=== PATIENT | female | born 2000 | race Caucasian/White ===

== ENCOUNTER 2024-03-31 12:42 | Emergency (ER) | payer MEDICAID, SELFPAY ==
[2024-03-31 13:08] VITALS: BP 145/89; PULSE 92; RESP 18; TEMP 36.9; O2SAT 99; BMI 47.2
--- NOTE | 2024-03-31 13:22 | XR_ITS ---
Examination: Pelvic ultrasound, transabdominal, complete Technique: Transabdominal ultrasound of the pelvis performed using grayscale imaging Date and time of exam: March 31, 2024 1425 hours INDICATIONS: Right-sided pelvic pain with vaginal bleeding beginning 2 weeks ago. FINDINGS: Uterus 5.5 x 2.9 x 4.2 cm Posterior uterine mass 2.6 x 0.7 x 2.2 cm No intrauterine gestation Endometrial stripe 0.6 cm Right ovary 2.5 x 1.1 x 2.0 cm arterial flow Left ovary 2.9 x 1.6 x 2.3 cm arterial flow No fluid in the cul-de-sac IMPRESSION: Recommend transvaginal pelvic sonography follow-up to further assess posterior uterine body mass 2.6 x 1.7 x 2.2 cm
--- NOTE | 2024-03-31 13:26 | PD.EDRME ---
Rapid Medical Screening Exam RME Arrival date/time: 03/31/24 12:42 24-year-old female evaluated emergency department for complaints of pelvic pain menorrhagia 2 weeks I have greeted and performed a focused initial assessment of this patient. Initial appropriate labs ordered at this time. A comprehensive ED assessment and evaluation of the patient and analysis of all test and completion of medical decision making process will be conducted by additional ED provider. Chief Complaint: Vaginal Bleeding Time Seen by Provider: 03/31/24 12:52 Vital signs: Vital Signs Temperature 98.5 F 03/31/24 13:08 Pulse Rate 92 03/31/24 13:08 Respiratory Rate 18 03/31/24 13:08 Blood Pressure 145/89 H 03/31/24 13:08 Pulse Oximetry (%) 99 03/31/24 13:08 Oxygen Delivery Method Room Air 03/31/24 13:08
[2024-03-31 14:00] LABS: Collection Type, Urine Clean Catch
[2024-03-31 14:03] LABS: Basophils # (Auto) 0.1 Thou/mm3 (0.0-0.2); Basophils % (Auto) 1 % (0-2.5); Eosinophils # (Auto) 0.4 Thou/mm3 (0.0-0.5); Eosinophils % (Auto) 4 % (0-10); Hematocrit 42.3 % (36.0-46.0); Hemoglobin 14.2 g/dL (12.0-16.0); Immature Granulocytes % (Auto) 0 % (0-0); Immature Granulocytes Auto 0.02 Thou/mm3 (0.00-0.00); Lymphocytes # (Auto) 2.9 Thou/mm3 (1.0-4.8); Lymphocytes % (Auto) 33 % (10-50); Mean Corpuscular HGB Conc 33.6 g/dl (31.0-37.0); Mean Corpuscular Hemoglobin 29.8 pg (25.0-35.0); Mean Corpuscular Volume 89 fL (80-100); Monocytes # (Auto) 0.7 Thou/mm3 (0.0-0.8); Monocytes % (Auto) 8 % (0-12); Neutrophils # (Auto) 4.8 Thou/mm3 (1.8-7.7); Neutrophils % (Auto) 54 % (37-80); Nucleated Red Blood Cell % 0 /100 WBC (0); Platelet Count 328 Thou/mm3 (140-440); RDW Standard Deviation 43.6 fL (36.4-46.3); Red Blood Count 4.76 Miln/mm3 (4.00-5.20); White Blood Count 8.9 Thou/mm3 (3.6-11.0)
[2024-03-31 14:10] LABS: Bilirubin,Urine Negative (Negative); Blood,Urine 3+ (Negative); Clarity,Urine Clear (Clear/Hazy); Color,Urine Colorless (Lt Yel-Yel); Glucose, Urine Negative (Negative); Ketones,Urine Negative (Negative); Leukocyte Esterase,Urine Positive (Negative); Nitrite,Urine Negative (Negative); Protein,Urine Trace (Neg - Trace); RBC,Urine 7 /hpf (0-3); Specific Gravity,Urine 1.022 (1.001-1.035); Squamous Epithelial Cell,Urine 2 /hpf (0-5); Urobilinogen,Urine Negative mg/dL (0.0-1.0); WBC,Urine 9 /hpf (0-5)
[2024-03-31 14:15] LABS: HCG Qualitative,Urine Negative
[2024-03-31 14:28] LABS: Anion Gap 7 (7-16); Blood Urea Nitrogen 13 mg/dL (9-23); Carbon Dioxide 23.9 mMol/L (20.0-31.0); Chloride 105 mMol/L (98-107); Potassium 3.9 mMol/L (3.4-5.1); Sodium 136 mMol/L (136-145)
[2024-03-31 14:29] LABS: Alanine Aminotransferase 17 U/L (10-49); Albumin, Serum 5.4 gm/dL (3.5-5.0); Albumin/Globulin Ratio 2.3 (1.2-2.2); Alkaline Phosphatase 62 U/L (46-116); Aspartate Amino Transferase 11 U/L (0-34); BUN/Creatinine Ratio 16 Ratio (12-20); Bilirubin,Total 0.5 mg/dL (0.3-1.2); Calcium 10.3 mg/dL (8.3-10.6); Calcium (Corrected) 10.3 mg/dL (8.5-10.1); Creatinine (Component) 0.8 mg/dL (0.6-1.3); Estimated Creatinine Clearance 128.9 mL/min (>60); Globulin 2.4 gm/dL (2.3-3.5); Glucose 93 mg/dL (74-106); Lipase 32 U/L (12-53); Osmolality,Calculated 272 (275-295); Total Protein 7.8 gm/dL (5.7-8.2); eGFR > 60 See Note
--- NOTE | 2024-03-31 15:06 | EDNOTE_ITS ---
ED OB Contraction Preg RMI/HPI General Chief complaint: Vaginal Bleeding Stated complaint: Vaginal bleeding X 2 weeks, abdominal pain Time Seen by Provider: 03/31/24 12:52 Arrival date/time: 03/31/24 12:42 RME / HPI RME / HPI Narrative: 03/31/24 12:42 24-year-old female evaluated emergency department for complaints of pelvic pain menorrhagia 2 weeks I have greeted and performed a focused initial assessment of this patient. Initial appropriate labs ordered at this time. A comprehensive ED assessment and evaluation of the patient and analysis of all test and completion of medical decision making process will be conducted by additional ED provider. DR. TOTH MAIN ED EVALUATION: 24 year old female with no past medical history presents to the Emergency Department with complaints of pelvic pain and vaginal bleeding onset 2 weeks. Pain described as cramping. Symptoms are moderate. Denies . Associated symptoms nausea. Related Data Previous Rx's ?Medication ?Instructions ?Recorded albuterol sulfate 90 mcg/actuation 2 puff inhalation QID PRN 01/09/18 aerosol inhaler (Ventolin HFA) shortness of breath or wheezing #8.5 grams mometasone-formoterol HFA 200 2 puff inhalation Q12H #8.8 grams 01/09/18 mcg-5 mcg/actuation aerosol inhaler (Dulera) ibuprofen 600 mg tablet 600 mg PO Q8H PRN fever or pain 01/18/23 #30 tabs acetaminophen 300 mg-codeine 30 mg 2 tab PO TID PRN pain #20 tabs 03/31/24 tablet Allergies Allergy/AdvReac Type Severity Reaction Status Date / Time cefdinir Allergy Severe THROAT Verified 01/09/18 20:43 CLOSES Review of Systems Review of Systems Systems Reviewed: All systems reviewed, normal except as documented Narrative Review of Systems: GEN: No fever, no chills, no weight loss EYES: No discharge, no visual changes, no pain HEENT: No ear pain, no congestion, no sore throat PULM: No shortness of breath, no cough, no congestion CV: No chest pain, no dyspnea on exertion, no palpitations GI: + nausea, no vomiting, no diarrhea, + pelvic pain, no constipation : + vaginal bleeding; No frequency, no urgency and no dysuria MUSC/SKEL: No joint pain, no back pain SKIN: No rash PSYCH: No hallucinations, no depression HEME/LYMPH: No easy bleeding or bruising tendencies NEURO: No weakness, no headache Past Medical History Past Medical History CARDIAC: Negative Cardiac Disorders or Congestive Heart Failure RESPIRATORY: Negative Chronic Obstructive Pulmonary Disease (COPD) or Asthma GENITOURINARY: Negative Renal Disease ENDOCRINE: Negative Diabetes Mellitus Type 1 or Diabetes Mellitus Type 2 HEMATOLOGIC: Negative Sickle Cell Disease Social History SMOKING STATUS: Never smoker ED Exam Narrative Physical exam: GENERAL APPEARANCE: alert and oriented x 4, well-developed, well-nourished, no acute distress VITALS: All vitals were reviewed and the pulse ox is 99% on room air, which is normal according to my interpretation. HEENT: Normocephalic, atraumatic; pupils equal, round, reactive to light; EOMI; mucous membranes pink, moist; oropharynx clear NECK: Supple LUNGS: CTABL; no wheezes, no rales, no rhonchi HEART: Regular rate, regular rhythm; normal S1, S2; no murmurs ABDOMEN: non distended; normal BS; soft, no tenderness, no guarding, no rebound; no masses, no organomegaly, no hernia BACK: no CVA tenderness EXTREMITIES: atraumatic; no edema NEUROLOGIC: awake; alert and oriented x4; cranial nerves II-XII grossly intact; no focal sensory or motor deficits PSYCHIATRIC: appropriate mood and affect SKIN: warm, dry, normal color; no rashes Course Course Course Narrative: 1800: Patient was signed out to Dr. Brown. Past medical, surgical, social and family history reviewed. Vitals and home medications reviewed. Results and t reatment plan discussed. They will assume the care of the patient at this time and will follow the patient, pending abdomen/ pelvis CT and final disposition. Quality Measures none Orders Category Date Time Status CT Screening NOW Care 03/31/24 15:[address] abdomen pelvis w con Stat Exams 03/31/24 15:52 Completed US pelvic complete Stat Exams 03/31/24 13:22 Completed CBC Stat Lab 03/31/24 13:34 Completed Comprehensive Metabolic Panel Stat Lab 03/31/24 13:34 Completed HCG Qualitative,Urine Stat Lab 03/31/24 13:42 Completed Lipase Stat Lab 03/31/24 13:34 Completed Urinalysis Stat Lab 03/31/24 13:42 Completed ACETAMINOPHEN w/COD 300-30 [Tylenol w/Cod #3] Med 03/31/24 20:23 Discontinued 2 tab PO X1 ONE Ondansetron Odt [Zofran Odt] Med 03/31/24 20:23 Discontinued 4 mg PO X1 ONE Vital Signs Vital signs: Vital Signs Temperature 98.5 F 03/31/24 13:08 Pulse Rate 92 03/31/24 13:08 Respiratory Rate 18 03/31/24 13:08 Blood Pressure 145/89 H 03/31/24 13:08 Pulse Oximetry (%) 99 03/31/24 13:08 Oxygen Delivery Method Room Air 03/31/24 13:08 Vaginal Bleeding MDM Narrative MDM Narrative: I, Aileen Jimenez am scribing for and in the presence of Dr. Toth. Patient data External records reviewed:: [facility] previous records (Reviewed last ED visit dated 01/18/23, discharged with the following: Contusion of elbow, left.) Clinical information provided by:: patient Social determinants that could affect healthcare access:: alcohol use Patient has the following chronic illnesses:: Denies any PMHx, surgeries, daily medications, or known allergies. How is presenting disease/condition affected by chronic disease/condition?: no chronic disease Evaluation data The following diagnostics were reviewed and interpreted by me:: lab results and radiology exam(s) Lab and/or radiology exams considered but not ordered:: none Interpretation Summary: Procedure(s): US pelvic complete Accession Number(s): [id number] cc: Rashawn Cobos MD; Ny PardoP~ Examination: Pelvic ultrasound, transabdominal, complete Technique: Transabdominal ultrasound of the pelvis performed using grayscale imaging Date and time of exam: March 31, 2024 1425 hours INDICATIONS: Right-sided pelvic pain with vaginal bleeding beginning 2 weeks ago. FINDINGS: Uterus 5.5 x 2.9 x 4.2 cm Posterior uterine mass 2.6 x 0.7 x 2.2 cm No intrauterine gestation Endometrial stripe 0.6 cm Right ovary 2.5 x 1.1 x 2.0 cm arterial flow Left ovary 2.9 x 1.6 x 2.3 cm arterial flow No fluid in the cul-de-sac IMPRESSION: Recommend transvaginal pelvic sonography follow-up to further assess posterior uterine body mass 2.6 x 1.7 x 2.2 cm Dictated By: Rashawn Cobos MD Medications / Prescriptions Medications or Prescriptions considered but not ordered:: none Medication administrations:: Medication Administration History Discontinued Medications Acetaminophen/Codeine Phosphate (Acetaminophen W/Cod 300-30 Tablet) 2 tab PO X1 ONE Stop: 03/31/24 20:24 Last Admin: 03/31/24 20:30 Dose: 2 tab Documented By: RUEL Ondansetron HCl (Ondansetron Odt 4 Mg Tabrap) 4 mg PO X1 ONE; Protocol Stop: 03/31/24 20:24 Last Admin: 03/31/24 20:30 Dose: 4 mg Documented By: RUEL see above if any Consultations Consultation(s) initiated? (list below): No Diagnosis Vaginal Bleeding Differential Diagnosis: dysfunctional uterine bleeding, menometrorrhagia and vaginal bleeding Most likely diagnosis given after review of the tests above:: No official diagnoses at this time, still pending diagnostic tests. Patient signout to the night club manager provider. Admission Indicated Admission indicated?: not indicated Explain why admission is indicated or not indicated:: No final disposition plan at this time, still pending diagnostic tests. Patient signout to the night club manager provider. Admission Request Was there a request for admission?: No Disposition Plan Disposition Plan: other (specify) (Patient signout to the night club manager provider.) Discharge Plan Plan Patient Disposition: HOME (Self Care) Prescriptions/Referrals Prescriptions/Med Rec: New acetaminophen-codeine 300-30 mg tablet 2 tab PO TID MDD 6 PRN (Reason: pain) Qty: 20 0RF No Action albuterol sulfate [Ventolin HFA] 90 mcg/actuation HFA aerosol inhaler 2 puff INH QID PRN (Reason: shortness of breath or wheezing) Qty: 8.5 0RF mometasone-formoterol [Dulera] 200-5 mcg/actuation HFA aerosol inhaler 2 puff INH Q12H Qty: 8.8 0RF ibuprofen 600 mg tablet 600 mg PO Q8H PRN (Reason: fever or pain) Qty: 30 0RF Referrals: No Primary/Family,Physician [Primary Care Provider] - In 1 week Problem List Clinical Impression: Pelvic pain Patient/Caregiver Discharge Instructions Discharge Activity: activity as tolerated Education Materials: ED Ovarian Cyst, ED Pain, Acute, Uncertain Cause Additional Instructions: Discharge instructions from Dr. Brown: -- After extensive evaluation, there is no emergency such as appendicitis needing urgent surgery. -- Your pain is most likely from an ovarian cyst that ruptured. -- In young females, it is normal to have ovarian cysts (sacs of fluid) that come and go depending on the menstruation.? If a cyst ruptures, it can cause severe pain until your body reabsorbs the fluid. -- Apply ice or heat if helpful.? Zofran for nausea/vomiting. Tylenol with codeine for severe pain. -- See a private doctor on 04/01/2024..? Ask to review all test results and official radiology reports, to make sure you receive all necessary follow-ups and monitoring. Ask for a referral to see a installer technician to make sure there is no other serious underlying conditions. -- Seek immediate medical care with worsening, fever, or with any concerns. Print Language: Telugu Stand Alone Forms: Della Award Info., Patient Portal Info Letter
--- NOTE | 2024-03-31 15:52 | XR_ITS ---
Examination: CT abdomen with intravenous contrast CT pelvis with intravenous contrast 2-D coronal reconstructions 2-D sagittal reconstructions Date and time of exam:March 31, 2024 at 1845 hrs. Indications: Onset right lower abdominal pain beginning 2 weeks ago. CTDI: vol (mGy) 12.3 DLP: (mGycm) 665 Technique: Multiple axial sections of the abdomen and pelvis have been obtained. 64 slice high-resolution scanner used. 3 mm axial sections have been obtained, post intravenous injection 60 cc [id number] 2-D sagittal, coronal reconstructions obtained. Low dose protocols were performed. One or more of the following dose reduction techniques were used; automated exposure control, adjustment of the mA and/or KV according to patient size, use of iterative reconstruction technique. Findings: No focal liver or splenic lesions No gallstones No pancreatic or adrenal mass No renal or ureteral calculi, no hydronephrosis Aorta normal size No pericecal inflammatory change No bowel obstruction or diverticulitis Anteverted uterus Contracted urinary bladder Impression: No renal or ureteral calculi, no hydronephrosis No CT findings of appendicitis bowel obstruction or diverticulitis
--- NOTE | 2024-03-31 18:32 | EDNOTE_ITS ---
Emergency Room Addendum <Aileen Jimenez - Last Filed: 03/31/24 18:33> Addendum Narrative: 1800: Care assumed from Dr. Toth, the previous shift emergency physician. Past medical, surgical, social and family history reviewed. Vitals and home medications reviewed. I will assume the care of the patient at this time, pending abdomen/ pelvis CT and final disposition. Please refer to the emergency department record for history and examination from initial visit.? Physical exam by me shows patient under no acute distress at this time. <Shay Brown MD - Last Filed: 03/31/24 20:31> Addendum Narrative: I took over the care from Dr. TOTH at 6 PM on 03/31/2024, see her notes for complete H&P and ED course. I reviewed all diagnostic test results. At this point, diagnoses include pelvic pain from or ovarian cyst rupture. Treatment here included Zofran and two Tylenol #3. She started to feel better. Recommended more outpatient DATA MINER care. Based on my best medical judgment, made decision no further evaluation or treatment indicated at this time. Patient understands and agrees to the discharge instructions customized and printed, see below. Discharge instructions from Dr. Brown: -- After extensive evaluation, there is no emergency such as appendicitis needing urgent surgery. -- Your pain is most likely from an ovarian cyst that ruptured. -- In young females, it is normal to have ovarian cysts (sacs of fluid) that come and go depending on the menstruation.? If a cyst ruptures, it can cause severe pain until your body reabsorbs the fluid. -- Apply ice or heat if helpful.? Zofran for nausea/vomiting. Tylenol with codeine for severe pain. -- See a private doctor on 04/01/2024..? Ask to review all test results and official radiology reports, to make sure you receive all necessary follow-ups and monitoring. Ask for a referral to see a continuous pickling line pickler helper to make sure there is no other serious underlying conditions. -- Seek immediate medical care with worsening, fever, or with any concerns. Shay Brown MD
[2024-03-31] MEDS: ACETAMINOPHEN w/COD 300-30 TABLET 2 TAB PO (20:30)
[2024-03-31] MEDS: ONDANSETRON ODT 4 MG TABRAP PO (20:30)
[2024-03-31 20:37] VITALS: BP 135/76; PULSE 76; RESP 18; TEMP 37; O2SAT 98
== END 2024-03-31 20:39 | disposition home or self-care (01) ==
PROVIDERS: Nurse Practitioner Primary Care; Emergency Provider Emergency Medicine
DX: R10.2 Pelvic and perineal pain (principal); N92.0 Excessive and frequent menstruation with regular cycle
CPT/HCPCS: 36415; 74177; 76856; 80053; 81001; 81025; 83690; 85025; 99285; A4649; Q0162; Q9967; A9270

== ENCOUNTER → 2024-06-01 | Outpatient (CLI) | payer MEDICAID, SELFPAY ==
--- NOTE | 2024-06-01 15:30 | XR_ITS ---
Examination: Pelvic ultrasound, transabdominal, complete Technique: Transabdominal ultrasound of the pelvis performed using grayscale imaging Date and time of exam: June 01, 2024 1521 hrs. Indications: Left lower abdominal pain pelvic pain beginning 2 weeks ago Findings: Uterus 6.1 cm endometrial stripe 0.5 cm no uterine mass or intrauterine gestation Right ovary 2.5 cm arterial flow Left ovary 2.4 cm arterial flow Impression: Negative examination
--- NOTE | 2024-06-01 15:30 | XR_ITS ---
Examination: Abdomen sonogram, complete Date and time of exam: June 01, 2024 1531 hrs. Indications: Left lower abdominal pain beginning 3 weeks ago. Technique: Multiple real-time grayscale transabdominal sonographic images of the abdomen have been obtained. Findings: Negative for gallstones Gallbladder wall 0.37 cm no edema Common bile duct 0.4 cm no stones Pancreatic head 2.0 cm Aorta not enlarged Liver 15 cm no focal liver lesions Normal hepatopedal portal venous flow Patent IVC Right kidney 10.7 cm renal cortex 1.6 cm Left kidney 10.6 cm cortex 2.5 cm Spleen 9.3 cm Impression: Negative for cholelithiasis, negative for cholecystitis Normal common bile duct Liver normal size no focal liver lesions
== END | disposition home or self-care (01) ==
PROVIDERS: PCP Nurse Practitioner Family; Referring Provider Nurse Practitioner Family; Visit Provider Nurse Practitioner Family
DX: R10.31 Right lower quadrant pain (principal)
CPT/HCPCS: 76700; 76856

== ENCOUNTER → 2025-03-16 | Outpatient (CLI) | payer MEDICAID, SELFPAY ==
--- NOTE | 2025-03-16 14:00 | XR_ITS ---
Examination: Pelvic ultrasound, transabdominal, complete Technique: Transabdominal ultrasound of the pelvis performed using grayscale imaging Date and time of exam: March 16, 2025, 1401 hours INDICATIONS: Irregular heavy menses 1 year FINDINGS: Uterus 6.6 cm no uterine mass or intrauterine gestation Right ovary 2.2 cm arterial flow Left ovary 3.1 cm arterial flow Endometrial stripe 0.5 cm IMPRESSION: Negative study
--- NOTE | 2025-03-16 14:00 | XR_ITS ---
Examination: Transvaginal ultrasound of the pelvis, complete Technique: Transvaginal sonographic images pelvis performed using hiar scale imaging Exam date and time: March 16, 2025, 1419 hours INDICATIONS: Irregular heavy menses several years FINDINGS: Uterus 5.5 cm no uterine mass or intrauterine gestation Endometrial size 0.5 cm Ovaries obscured by bowel gas IMPRESSION: No uterine mass or intrauterine gestation.
== END | disposition home or self-care (01) ==
PROVIDERS: PCP Nurse Practitioner Primary Care; Referring Provider Nurse Practitioner Primary Care; Visit Provider Nurse Practitioner Primary Care
DX: N93.9 Abnormal uterine and vaginal bleeding, unspecified (principal)
CPT/HCPCS: 76830; 76856